=== PATIENT | female | born 1975 | race Caucasian/White ===

== ENCOUNTER 2019-01-18 13:12 | Emergency (ER) | payer OTHER ==
[~2019-01-18] VITALS: Ht 160 cm; Wt 65.8 kg
[2019-01-18 16:03] LABS: HEMATOCRIT 45.4 % (37.0-47.0); HEMOGLOBIN 15.6 gm/dL (12.0-15.0); MCHC 34.4 g/dL (28.0-37.0); RBC 4.88 mil/uL (4.20-5.00); RDW 12.8 % (10.5-14.5); WBC 11.8 thou/uL (4.0-11.0)
[2019-01-18 16:09] LABS: CALCIUM 9.5 mg/dL (8.5-10.1); CREATININE 0.8 mg/dL (0.6-1.0); POTASSIUM 3.7 mmol/L (3.5-5.1)
[2019-01-18 18:08] LABS: CSF CLARITY CLEAR; CSF COLOR COLORLESS; VOLUME 4 ml
[2019-01-18 18:15] LABS: CSF GLUCOSE 65 mg/dL (40-70)
[2019-01-18 18:30] LABS: CSF RBC 45 /mm3; CSF WBC 2 /mm3 (0-10)
[2019-01-18 20:10] VITALS: BP 94/49
== END 2019-01-18 20:12 | disposition home or self-care (01) ==
LOC: ER 13:12
PROVIDERS: Emergency Medicine
DX: R51 Headache (principal); E04.1 Nontoxic single thyroid nodule; F17.210 Nicotine dependence, cigarettes, uncomplicated; Z88.6 Allergy status to analgesic agent; Z90.49 Acquired absence of other specified parts of digestive tract; Z98.890 Other specified postprocedural states